=== PATIENT | male | born 1985 | race Caucasian/White ===

== ENCOUNTER 2023-11-15 01:32 | Emergency (ER) | payer OTHER, SELFPAY ==
[2023-11-15 01:34] VITALS: BP 130/101
--- NOTE | 2023-11-15 02:10 | ED.GENMED ---
History of Present Illness
General
Chief Complaint: Fainting Sensation
Source: patient
Exam Limitations: none
Time Seen by Provider: 11/15/23 01:52
Nursing documentation reviewed up to this point in time: agreed with
Travel History
Have you had any contact with someone who has COVID-19?: No
Do you have any symptoms of coronavirus? Fever > 100 degrees, chills, cough, shortness of breath, sore throat, loss of taste or smell, muscle aches, or headache?: No
History of Present Illness
History of Present Illness:
38 yo male presents to the emergency department complaining of feeling faint. He now feels improved. 2 days ago he vomited and thinks he may have passed out. This was after drinking tequila, smoking hash using mushroom, and taking Vicodin.
Past History
Past History
ED Past Medical History: None
ED Past Surgical History: Other ([place] teeth, hernia, gynecomastia surgery)
Social History
Tobacco: Non-smoker
Alcohol: Occasional
Drug: Marijuana, Narcotics and Other (Mushrooms)
Personal:
Living: with family
Review of Systems
Review of Systems
Allergies reviewed?: Yes
All Other Systems: Not applicable
Constitutional: Reports no symptoms
EENT: Reports no symptoms
Respiratory: Reports no symptoms
Cardiac: Reports syncope
ABD/GI: Reports vomiting
: Reports no symptoms
Musculoskeletal: Reports no symptoms
Skin: Reports no symptoms
Neurological: Reports no symptoms
Endocrine: Reports no symptoms
Hematologic/Lymphatic: Reports no symptoms
Psychiatric: Reports no symptoms
Phy Exam
Physical Exam
Physical Exam:
Physical Exam
General: no apparent distress, not acutely ill
Neck: supple. no meningeal signs. normal posterior pharynx
Heart: s1/s2 regular rate and rhythm, no murmur. equal radial
pulses.
HEENT: Pupils equal round reactive to light, EOMI
Lungs: no acute respiratory distress. clear bilaterally
Abdomen: normal bowel sounds. not tender. no CVAT
Neuro: alert and oriented. no focal neurological deficits cranial nerves II through XII intact
Skin: no rash
Psychiatric: well kept. interactive and cooperative
Extremities: no edema. no calf tenderness. negative homans. good distal pulses
Course
Orders/Labs/Results
Orders:
Orders
11/15/23 01:45
EKG [Electrocardiogram (*1)] Urgent
Reason for Study: Syncope
Complete Blood Count/With Diff Urgent
Comprehensive Metabolic Panel Urgent
11/15/23 01:46
EKG- Treatment ONCE
Vital Signs
Initial and Last Documented VS:
Initial Vital Signs
Temp Pulse Resp BP Pulse Ox
98.2 F 61 17 130/101 98
11/15/23 01:34 11/15/23 01:34 11/15/23 01:34 11/15/23 01:34 11/15/23 01:34
Last Documented Vital Signs
Temp Pulse Resp BP Pulse Ox
98.2 F 61 17 130/101 98
11/15/23 01:34 11/15/23 01:34 11/15/23 01:34 11/15/23 01:34 11/15/23 01:34
MDM/Problems Addressed
Differential Diagnosis Includes:
Dysrhythmia, syncope
MDM/Problems Addressed:
38-year-old male with near syncope. No signs of dysrhythmia, stable for discharge.
*Pulse Oximetry
Patient hypoxic: no
*EKG
Interpreted by ED Provider?: Yes
EKG Intrepretation Date: 11/15/23
EKG Intrepretation Time: 01:56
Interpretation: abnormal
Comparison EKG: no comparison EKG present
Heart Rate: 54
Rate: bradycardiac
Rhythm: sinus
Samson: normal axis
Interval: first degree heart block
QRS Pattern: normal QRS
Ischemia: no ischemia
*Cabinet Worker Interpretation
Rate: Cabinet Worker- N/A
*Critical Care Note
Total Time (30-74mins, 75-104mins- exclusive of procedures): Not Applicable
Data Reviewed
Further Testing Considered But Not Given:
labs, head ct, not indicated
Patient Management
Social determinants of health affecting care: Living situation, Substance abuse and Strong social support
Escalation/DeEscalation of care consider admission/obs:
admit not indicated
ED Attending Note
-
Portions of this chart may have been created with voice recognition software.� Occasional wrong word or��sound alike� substitutions may have occurred due to the inherent limitations of voice recognition software.
Discharge Plan
Departure
Patient Disposition: Home (Routine Discharge)
Date of Disposition: 11/15/23
Time of Disposition: 02:20
Patient with high blood pressure during this ER visit?: Yes
Condition: Good
Discharge Problem:
Near syncope
Instructions: Drug Misuse and Addiction (DC), Near Fainting (DC), BLOOD PRESSURE
Activity Restrictions/Additional Instructions:
Follow up with primary care, return for any concerns.
Interventions
Interventions:
*Risk Screen - Suicide Last Done: 11/15/23 01:34
*General Assessment Last Done: 11/15/23 01:34
*Neglect/Abuse Screening Last Done: 11/15/23 01:34
ED- Fall Risk Assessment Last Done: 11/15/23 01:34
*ED COVID-19 Vaccine History Last Done: 11/15/23 01:34
== END 2023-11-15 02:53 | disposition home or self-care (01) ==
LOC: EMR 01:32
PROVIDERS: EMERGENCY PHYSICIAN Emergency Medicine; FAMILY PHYSICIAN Family Medicine
DX: R55 Syncope and collapse (principal)
CPT/HCPCS: 99283; 93005